=== PATIENT | female | born 1980 | race American Indian/Alaskan Native ===

== ENCOUNTER 2019-05-04 19:16 | Emergency (ER) | payer SELFPAY ==
[2019-05-04] MEDS ORDERED: cloNIDine 0.2 MG TAB ONE (22:57)
--- NOTE | 2019-05-04 22:57 | Event Note ---
ED Screening Note Date of service: 05/04/19 Time: 22:56 ED Screening Note: 39 y o f [facility]hof htn uncomp,liant no meds x 4 months presents with headache and elevated BP This initial assessment/diagnostic orders/clinical plan/treatment(s) is/are subject to change based on patients health status, clinical progression and re- assessment by fellow clinical providers in the ED. Further treatment and workup at subsequent clinical providers discretion. Patient/guardian urged not to elope from the ED as their condition may be serious if not clinically assessed and managed. Initial orders include: clonidine 0.2 in traige acc eval
[2019-05-04] MEDS ORDERED: cloNIDine 0.2 MG TAB PO ONE (22:59)
[2019-05-04 23:53] VITALS: BP 145/95
--- NOTE | 2019-05-05 01:24 | Emergency Department Report ---
ED General Adult HPI - General Chief complaint: High BP Stated complaint: ELEVATED BLOOD PRESSURE Time Seen by Provider: 05/05/19 00:48 Source: patient Mode of arrival: Ambulatory Limitations: No Limitations - History of Present Illness Initial comments: 39-year-old female ran out of her clonidine several days and since that time to have a spikes in her blood pressure to the point was significant for a little lightheaded. At this present time her symptoms are resolved she denies chest pain or palpitations no nausea vomiting no cough no swelling to the lower lower extremity -: Gradual Radiation: non-radiation Quality: dull Consistency: constant Improves with: none Worsens with: none Associated Symptoms: denies other symptoms - Related Data Previous Rx's Medication Instructions Recorded Last Taken Type cloNIDine [Catapres] 0.1 mg PO BID #40 tablet 05/05/19 Unknown Rx Allergies Allergy/AdvReac Type Severity Reaction Status Date / Time No Known Allergies Allergy Verified 05/04/19 23:18 ED Review of Systems ROS: Stated complaint: ELEVATED BLOOD PRESSURE Other details as noted in HPI Comment: All other systems reviewed and negative ED Past Medical Hx - Past Medical History Previous Medical History?: Yes Hx Hypertension: Yes - Surgical History Past Surgical History?: No - Social History Smoking Status: Never Smoker Substance Use Type: None - Medications Home Medications: Home Medications Medication Instructions Recorded Confirmed Last Taken Type cloNIDine [Catapres] 0.1 mg PO BID #40 tablet 05/05/19 Unknown Rx ED Physical Exam - General Limitations: No Limitations General appearance: alert, in no apparent distress - Head Head exam: Present: atraumatic, normocephalic - Eye Eye exam: Present: normal appearance - ENT ENT exam: Present: normal exam, mucous membranes moist, TM's normal bilaterally - Neck Neck exam: Present: normal inspection, full ROM - Respiratory Respiratory exam: Present: normal lung sounds bilaterally. Absent: respiratory distress - Cardiovascular Cardiovascular Exam: Present: regular rate, normal rhythm. Absent: systolic murmur, diastolic murmur, rubs, gallop - GI/Abdominal GI/Abdominal exam: Present: soft, normal bowel sounds - Extremities Exam Extremities exam: Present: normal inspection - Back Exam Back exam: Present: normal inspection - Neurological Exam Neurological exam: Present: alert, oriented X3 - Psychiatric Psychiatric exam: Present: normal affect, normal mood - Skin Skin exam: Present: warm, dry, intact, normal color. Absent: rash ED Course Vital Signs 05/04/19 05/04/19 05/04/19 20:34 23:00 23:52 Temperature 98.4 F Pulse Rate 68 73 61 Respiratory 18 18 17 Rate Blood Pressure 178/117 180/116 Blood Pressure 180/117 145/95 [Left] O2 Sat by Pulse 100 Oximetry 05/05/19 01:05 Temperature Pulse Rate Respiratory 18 Rate Blood Pressure Blood Pressure [Left] O2 Sat by Pulse Oximetry ED Medical Decision Making - Medical Decision Making presents to the emergency department complaining of high blood pressure. Patient is otherwise asymptomatic without confusion, chest pain, hematuria, or SOB. BP today is __145/96 upon discharge Patient is not currently on medication Doubt CV, AMI, heart failure, renal infarction or failure or other end organ damage. Disposition:Discussed with patient their elevated blood pressure and need for close outpatient management of their hypertension. Will provide a prescription for the patients previous antihypertensive medication and arrange for the patient to follow up in a primary care clinic Disposition: Discussed with patient their elevated blood pressure and need for close outpatient management of their hypertension. Will provide a prescription for her medication clonidine that she ran out of [place] follow the primary care provider C this possible to adjust her medications given the compliance risk with clonidine daily and arrange for the patient to follow up in a primary care clinic Critical care attestation.: If time is entered above; I have spent that time in minutes in the direct care of this critically ill patient, excluding procedure time. ED Disposition Clinical Impression: Hypertension Disposition: DC-01 TO HOME OR SELFCARE Is pt being admited?: No Does the pt Need Aspirin: No Condition: Stable Instructions: Hypertension (ED) Prescriptions: cloNIDine [Catapres] 0.1 mg PO BID #40 tablet Referrals: CHRISTINA LIU MD [Primary Care Provider] - 3-5 Days Forms: Work/School Release Form(ED)
== END 2019-05-05 01:05 | disposition home or self-care (01) ==
LOC: ED 19:16
DX: I10 Essential (primary) hypertension (principal); Z79.899 Other long term (current) drug therapy